=== PATIENT | male | born 1955 | race African-American/Black ===

== ENCOUNTER 2018-03-16 22:17 | Emergency (ER) | payer MEDICAID ==
[~2018-03-16] VITALS: Ht 177.8 cm; Wt 79.5 kg
[2018-03-17 01:27] VITALS: BP 156/77
== END 2018-03-17 01:28 | disposition home or self-care (01) ==
LOC: ER 22:17
DX: S62.366A Nondisplaced fracture of neck of fifth metacarpal bone, right hand, initial encounter for closed fracture (principal); F12.10 Cannabis abuse, uncomplicated; F17.200 Nicotine dependence, unspecified, uncomplicated; Z98.890 Other specified postprocedural states; X58.XXXA Exposure to other specified factors, initial encounter; Y93.71 Activity, boxing; Y92.89 Other specified places as the place of occurrence of the external cause; Y99.8 Other external cause status
CPT/HCPCS: 29125; 73130; 99284

== ENCOUNTER 2018-03-22 04:18 | Emergency (ER) | payer MEDICAID ==
[~2018-03-22] VITALS: Ht 177.8 cm; Wt 75.0 kg
[2018-03-22 06:41] VITALS: BP 150/68
== END 2018-03-22 06:42 | disposition home or self-care (01) ==
LOC: ER 05:38
DX: M40.204 Unspecified kyphosis, thoracic region (principal); M79.1 Myalgia; F17.200 Nicotine dependence, unspecified, uncomplicated; F12.10 Cannabis abuse, uncomplicated; Z98.890 Other specified postprocedural states
CPT/HCPCS: 99283

== ENCOUNTER 2018-11-21 13:06 | Emergency (ER) | payer MEDICAID ==
[~2018-11-21] VITALS: Ht 175.3 cm; Wt 74.0 kg
[2018-11-21] MEDS ORDERED: HYDROCODONE/ACETAMINOPHEN 5/325MG TABLET PO ONE (15:15)
[2018-11-21 16:10] VITALS: BP 196/94
== END 2018-11-21 16:20 | disposition home or self-care (01) ==
LOC: ER 13:06
DX: M54.5 Low back pain (principal); I10 Essential (primary) hypertension; F12.10 Cannabis abuse, uncomplicated; F17.210 Nicotine dependence, cigarettes, uncomplicated; Z98.890 Other specified postprocedural states; W01.0XXA Fall on same level from slipping, tripping and stumbling without subsequent striking against object, initial encounter; Y93.89 Activity, other specified; Y92.018 Other place in single-family (private) house as the place of occurrence of the external cause
CPT/HCPCS: 72170; 99283

== ENCOUNTER 2019-02-10 19:13 | Emergency (ER) | payer MEDICAID ==
[~2019-02-10] VITALS: Ht 177.8 cm; Wt 82.0 kg
[2019-02-10] MEDS ORDERED: LABETALOL 5MG/ML SYR 20 MG/4 ML SYRINGE IV ONE (21:15)
[2019-02-10] MEDS ORDERED: SODIUM CHLORIDE 0.9% 1,000 ML IV ONE (21:46)
[2019-02-10 21:51] LABS: BASOPHILS % 0.4 % (0.0-2.0); EOSINOPHILS % 0.3 % (0.0-5.0); HEMOGLOBIN. 16.5 g/dL (14.0-18.0); LYMPHOCYTES % 35.3 % (20.0-50.0); MEAN CORPUSCULAR HEMOGLOBIN 33.5 pg (28.0-32.0); MEAN CORPUSCULAR VOLUME 97.1 fL (80.0-94.0); MEAN PLATELET VOLUME 8.3 fl (7.4-10.4); MONOCYTES % 10.7 % (2.0-8.0); NEUTROPHILS % 53.3 % (40.0-76.0); PLATELET 157 x1000/uL (130-400); RED BLOOD CELL COUNT 4.94 mill/uL (4.7-6.1); RED CELL DISTRIBUTION WIDTH 15.2 % (11.6-14.6)
[2019-02-10 21:55] LABS: CHLORIDE 111 mEq/L (98-107)
[2019-02-10 22:07] LABS: ETHANOL BLOOD 332 mg/dL
[2019-02-10 23:25] VITALS: BP 144/74
== END 2019-02-11 00:36 | disposition home or self-care (01) ==
LOC: ER 19:13
DX: F10.129 Alcohol abuse with intoxication, unspecified (principal); R55 Syncope and collapse; I10 Essential (primary) hypertension; I25.2 Old myocardial infarction; F12.10 Cannabis abuse, uncomplicated; F17.200 Nicotine dependence, unspecified, uncomplicated; Z96.653 Presence of artificial knee joint, bilateral; Y90.9 Presence of alcohol in blood, level not specified
CPT/HCPCS: 36415; 71045; 80053; 80320; 83880; 84484; 85025; 93005; 96361; 96374; 99284; J3490; J7030; G0480

== ENCOUNTER 2021-09-16 12:14 | Emergency (ER) | payer MEDICAID ==
[~2021-09-16] VITALS: Ht 172.7 cm; Wt 63.5 kg
[2021-09-16 12:18] VITALS: BP 123/75
== END 2021-09-16 12:33 | disposition left against medical advice (07) ==
LOC: ER 12:28
DX: Z53.21 Procedure and treatment not carried out due to patient leaving prior to being seen by health care provider (principal)
CPT/HCPCS: 99283